=== PATIENT | male | born 1995 | race Two or more races ===

== ENCOUNTER 2020-02-28 21:24 | Emergency (ER) | payer OTHER ==
[2020-02-28 21:31] VITALS: BP 116/71; PULSE 76; TEMP 97.6; BMI 18.1
--- NOTE | 2020-02-28 21:31 | PDOC ---
Rapid Medical Evaluation Time Seen by Provider: 02/28/20 21:28 Medical Evaluation: 02/28/20 21:28 Pt presents for evaluation of chest pain for three days. States it started at the R side and now has moved to the left. Hx of COVID back in July. Worse with exertion Exam: RRR. Lungs CTAB Orders: labs, EKG Pt to proceed to the ER for evaluation Discharge Disposition - Diagnosis Chest pain - Referrals - Patient Instructions - Post Discharge Activity
--- NOTE | 2020-02-29 00:07 | PDOC ---
History of Present Illness - General Chief Complaint: Chest Pain Stated Complaint: CHEST PAIN Time Seen by Provider: 02/28/20 21:28 History Source: Patient Exam Limitations: No Limitations - History of Present Illness Initial Comments: 02/29/20 00:05 HISTORY OF PRESENT ILLNESS: 24-year-old male presents emergency department for evaluation of left-sided chest pain starting at approximately 6:00 today. Patient reports the pain was a sharp sensation which radiated to his left arm giving him weakness in his left arm. Patient states he has had a similar pain to the right side of his chest over the past 5 to 6 days but was concerned now that the pain has radiated to his left arm. Patient denies any coughing, fevers, chills, shortness of breath, nausea, vomiting, drug use. No recent travel or sick contacts. PAST MEDICAL HISTORY: Denies past medical history SURGICAL HISTORY: Denies ALLERGIES: Penicillin REVIEW OF SYSTEMS General/Constitutional: Denies fever or chills. Denies weakness, weight change. HEENT: Denies change in vision. Denies ear pain or discharge. Denies sore throat. Cardiovascular: See HPI Respiratory: Denies cough, wheezing, or hemoptysis. Gastrointestinal: Denies nausea, vomiting, diarrhea or constipation. Denies rectal bleeding. Genitourinary: Denies dysuria, frequency, or change in urination. Musculoskeletal: Denies joint or muscle swelling or pain. Denies neck or back pain. Skin and breasts: Denies rash or easy bruising. Neurologic: Denies headache, vertigo, loss of consciousness, or loss of sensation. Psychiatric: Denies depression or anxiety. Endocrine: Denies increased thirst. Denies abnormal weight change. Hematologic/Lymphatic: Denies anemia, easy bleeding, or history of blood clots. Allergic/Immunologic: Denies hives or skin allergy. Denies latex allergy. PHYSICAL EXAM General Appearance: Well-appearing, appropriately dressed. No apparent distress, no intoxication. Respiratory/Chest: Lungs CTAB. No shortness of breath, chest tenderness, respiratory distress, accessory muscle use. No crackles, rales, rhonchi, stridor , wheezing, dullness Cardiovascular: RRR. S1, S2. No JVD, murmur, bradycardia, tachycardia. Vascular Pulses: Dorsalis-Pedis (R): 2+, Dorsalis-Pedis (L): 2+ Gastrointestinal/Abdominal: Normal bowel sounds. Abdomen soft, non-distended. No tenderness or rebound tenderness. No organomegaly, pulsatile mass, guarding, hernia, hepatomegaly, splenomegaly. Integumentary: Appropriate color, dry, warm. No cyanosis, erythema, jaundice or rash Past History - Medical History Allergies/Adverse Reactions: Allergies Allergy/AdvReac Type Severity Reaction Status Date / Time Penicillins Allergy Verified 02/28/20 21:31 COPD: No - Psycho-Social/Smoking History Smoking History: Never smoked - Substance Abuse Hx (Audit-C & DAST Scrn) How often the patient has a drink containing alcohol: Never Score: In Men: 4 or > Positive; In Women: 3 or > Positive: 0 Screen Result (Pos requires Nsg. Audit-10AR): Negative In the last yr the pt used illegal drug/Rx for NonMed reason: No Score: Yes response is considered Positive: 0 Screen Result (Positive result requires Nsg. DAST-10): Negative *Physical Exam - Vital Signs Last Vital Signs Temp Pulse Resp BP Pulse Ox 97.6 F 76 19 116/71 99 02/28/20 21:28 02/28/20 21:28 02/28/20 21:28 02/28/20 21:28 02/28/20 21:28 ED Treatment Course - LABORATORY CBC & Chemistry Diagram: 02/28/20 23:35 02/28/20 23:35 - ADDITIONAL ORDERS Additional order review: Laboratory Results 02/28/20 02/28/20 23:35 23:35 PT with INR 14.50 H INR 1.23 H Sodium 140 Potassium 3.9 Chloride 104 Carbon Dioxide 31 Anion Gap 5 L BUN 17.4 Creatinine 1.1 Est GFR (CKD-EPI)AfAm 108.32 Est GFR (CKD-EPI)NonAf 93.46 Random Glucose 59 L Calcium 8.9 Total Bilirubin 1.7 H AST 12 L ALT 18 Alkaline Phosphatase 60 Creatine Kinase 88 Troponin I < 0.02 Total Protein 7.5 Albumin 4.2 02/28/20 23:35 RBC 5.19 MCV 80.5 MCHC 35.5 RDW 12.6 MPV 9.0 Neutrophils % 65.6 Lymphocytes % 22.1 Monocytes % 8.3 Eosinophils % 0.4 Basophils % 3.6 H Medical Decision Making - Medical Decision Making 02/29/20 00:07 A/P: 24-year-old male with left-sided chest pain for 6 hours Physical exam is unremarkable Orders per E Reassess anticipate discharge 02/29/20 01:07 Laboratory Tests 02/28/20 02/28/20 02/28/20 23:35 23:35 23:35 WBC 5.2 RBC 5.19 Hgb 14.8 Hct 41.8 MCV 80.5 MCH 28.6 MCHC 35.5 RDW 12.6 Plt Count 162 MPV 9.0 Absolute Neuts (auto) 3.4 Neutrophils % 65.6 Lymphocytes % 22.1 Monocytes % 8.3 Eosinophils % 0.4 Basophils % 3.6 H Nucleated RBC % 0 PT with INR 14.50 H INR 1.23 H Sodium 140 Potassium 3.9 Chloride 104 Carbon Dioxide 31 Anion Gap 5 L BUN 17.4 Creatinine 1.1 Est GFR (CKD-EPI)AfAm 108.32 Est GFR (CKD-EPI)NonAf 93.46 Random Glucose 59 L Calcium 8.9 Total Bilirubin 1.7 H AST 12 L ALT 18 Alkaline Phosphatase 60 Creatine Kinase 88 Troponin I < 0.02 Total Protein 7.5 Albumin 4.2 Chest x-ray as read by me: Angles clear. Cardiac silhouette is within normal limits. No focal infiltrates or consolidations noted. EKG sinus rhythm with rate of 74. T wave inversions in V2. This patient has normal initial troponin and symptoms been present for 7 days feel it is safe to discharge home to follow-up with his primary doctor. I discussed the physical exam findings, ancillary test results and final diagnoses with the patient. I answered all of the patient's questions. The patient was satisfied with the care received and felt comfortable with the dis charge plan and treatment plan. The patient will call their primary care physician within 24 hours to arrange follow-up and will return to the Emergency Department with any new, persistent or worsening symptoms. Portions of this note have been documented using voice recognition software. As a result, errors may occur in the electrician machine shop process. Effort has been made to correct all grammatical and electrician machine shop error, but some may have been missed which may produce sporadic inaccurate electrician machine shop or nonsensical phrases. Discharge - Discharge Information Problems reviewed: Yes Clinical Impression/Diagnosis: Chest pain Qualifiers: Chest pain type: unspecified Qualified Code(s): R07.9 - Chest pain, unspecified Condition: Fair Disposition: HOME - Admission No - Follow up/Referral Referrals: ON STAFF,NOT [Primary Care Provider] - - Patient Discharge Instructions Patient Printed Discharge Instructions: DI for Chest Pain Additional Instructions: It is important that you follow-up with your primary doctor. Return to the emergency department for any new or worsening symptoms. Thank you very much for choosing us to provide your emergent healthcare needs. - Post Discharge Activity Work/Back to School Note: Back to Work
[2020-02-29 00:11] LABS: BASO % 3.6 % (0-2.0); EOS % 0.4 % (0-4.5); HEMATOCRIT 41.8 % (35.4-49); HEMOGLOBIN 14.8 GM/dL (11.7-16.9); INR 1.23 (0.83-1.09); LYMPH % 22.1 % (8-40); MCH 28.6 pg (25.7-33.7); MCHC 35.5 g/dl (32.0-35.9); MEAN CELL VOLUME 80.5 fl (80-96); MONO % 8.3 % (3.8-10.2); NEUT % 65.6 % (42.8-82.8); PLATELET COUNT 162 K/MM3 (134-434); PROTHROMBIN TIME (PATIENT) 14.5 SEC (9.7-13.0); RBC 5.19 M/mm3 (4.00-5.60); RDW 12.6 % (11.9-15.9); WHITE BLOOD COUNT 5.2 K/mm3 (4.0-10.0)
[2020-02-29 00:34] LABS: ALBUMIN 4.2 g/dl (3.4-5.0); ALK PHOS 60 U/L (45-117); ANION GAP 5 MMOL/L (8-16); BILIRUBIN,TOTAL 1.7 mg/dL (0.2-1); BLOOD UREA NITROGEN 17.4 mg/dL (7-18); CALCIUM 8.9 mg/dL (8.5-10.1); CHLORIDE 104 mmol/L (98-107); CO2 31 mmol/L (21-32); CREATININE 1.1 mg/dL (0.55-1.3); GLUCOSE,RANDOM 59 mg/dL (74-106); POTASSIUM 3.9 mmol/L (3.5-5.1); SGOT/AST 12 U/L (15-37); SGPT/ALT 18 U/L (13-61); SODIUM 140 mmol/L (136-145); TOT PROT 7.5 g/dl (6.4-8.2)
--- OUTSIDE RECORDS SUMMARY | 2020-02-29 06:32 | XMS ---
:1995 Author Organization [facility] Support Name Relationship Address Phone UE, UNEMPLOYED Unavailable Unavailable Unavailable UE Unavailable Unavailable Unavailable [employer]TON [employer] [address] [place] [id number] Re-disclosure Warning The records that you are about to access may contain information from federally- assisted alcohol or drug abuse programs. If such information is present, then the following federally mandated warning applies: This information has been disclosed to you from records protected by federal confidentiality rules (42 CFR part 2). The federal rules prohibit you from making any further disclosure of this information unless further disclosure is expressly permitted by the written consent of the person to whom it pertains or as otherwise permitted by 42 CFR part 2. A general authorization for the release of medical or other information is NOT sufficient for this purpose. The Federal rules restrict any use of the information to criminally investigate or prosecute any alcohol or drug abuse patient.The records that you are about to access may contain highly sensitive health information, the redisclosure of which is protected by Article 27-F of the [facility] Public Health law. If you continue you may haveaccess to information: Regarding HIV / AIDS; Provided by facilities licensed or operated by the [facility] Office of Mental Health; or Provided by the [facility] Office for People With Developmental Disabilities. If such information is present, then the following [facility] mandated warning applies: This information has been disclosed to you from confidential records which are protected by state law. State law prohibits you from making any further disclosure of this information without the specific written consent of the person to whom it pertains, or as otherwise permitted by law. Any unauthorized further disclosure in violation of state law may result in a fine or fdc sentence or both. A general authorization for the release of medical or other information is NOT sufficient authorization for further disclosure. Insurance Providers Payer name Policy type Policy ID Covered Covered libertarian's Policy P denis / Coverage libertarian ID relationship to Luz Inf ormation type luz [employer] [id number] SP [id number] ESSENTIAL PLAN 1 2 SELF PAY SP INSURANCE MEDICAID [id number] Results ID Date Data Source [id number] 08/14/2019 12:00:00 AM EDT [facility] Name Value Range Interpretation Code Description Data Odilia rce(s) Supporting Document(s ) 2019-nCoV [facility] RNA XXX LENORA+probe- Imp This lab was ordered by [facility] a nd reported by [employer] Procedure
--- NOTE | 2020-02-29 13:22 | EKG ---
Test Reason : Blood Pressure : / mmHG Vent. Rate : 074 BPM Atrial Rate : 074 BPM P-R Int : 158 ms QRS Dur : 088 ms QT Int : 366 ms P-R-T Axes : 083 084 065 degrees QTc Int : 406 ms NORMAL SINUS RHYTHM WITH SINUS ARRHYTHMIA POSSIBLE LEFT ATRIAL ENLARGEMENT BORDERLINE ECG NO PREVIOUS ECGS AVAILABLE Confirmed by EDDIE CHOI MD ([id number]) on 02/29/2020 1:22:10 PM Referred By: Confirmed By:EDDIE CHOI MD
== END 2020-02-29 00:30 | disposition home or self-care (01) ==
LOC: JER 21:24
DX: R07.9 Chest pain, unspecified (principal)
CPT/HCPCS: 36415; 71046-TC-FY; 80053; 82550; 84484; 85025; 85610; 93005; 93010; 99285-25

== ENCOUNTER 2020-11-05 11:19 | Emergency (ER) | payer OTHER ==
[2020-11-05 11:32] VITALS: BMI 18.1
[2020-11-05] MEDS ORDERED: SODIUM CHLORIDE 1,000 ML IV STA (11:36)
[2020-11-05 12:33] LABS: BASO % 0.3 % (0-2.0); EOS % 0.8 % (0-4.5); HEMATOCRIT 44.1 % (35.4-49); HEMOGLOBIN 15.4 GM/dL (11.7-16.9); MCH 28.1 pg (25.7-33.7); MEAN CELL VOLUME 80.4 fl (80-96); MONO % 7.4 % (3.8-10.2); NEUT % 77.5 % (42.8-82.8); PLATELET COUNT 140 10^3/uL (134-434); RBC 5.49 M/mm3 (4.00-5.60); RDW 12.8 % (11.9-15.9); WHITE BLOOD COUNT 9.3 K/mm3 (4.0-10.0)
[2020-11-05] MEDS ORDERED: ACETAMINOPHEN 1000 MG/100 ML VIAL (NON FORMULARY) IVPB ONE (12:34)
[2020-11-05] MEDS ORDERED: ACETAMINOPHEN INJECTION 100 ML IVPB ONE (12:42)
[2020-11-05 13:14] LABS: CHLORIDE 108 mmol/L (98-107); SODIUM 139 mmol/L (136-145)
[2020-11-05 13:18] LABS: BLOOD UREA NITROGEN 11.8 mg/dL (7-18); CALCIUM 9.7 mg/dL (8.5-10.1); GLUCOSE,RANDOM 97 mg/dL (74-106)
[2020-11-05 13:29] LABS: ALBUMIN 4.6 g/dl (3.4-5.0); ALK PHOS 59 U/L (45-117); ANION GAP 12 MMOL/L (8-16); CO2 19 mmol/L (21-32); CREATININE 1.1 mg/dL (0.55-1.3); SGOT/AST 14 U/L (15-37); SGPT/ALT 17 U/L (13-61); TOT PROT 7.7 g/dl (6.4-8.2)
[2020-11-05 18:46] VITALS: BP 121/67; PULSE 82; TEMP 98.2
== END 2020-11-05 18:00 | disposition home or self-care (01) ==
LOC: JER 11:19
PROC: 3E0333Z Introduction of Anti-inflammatory into Peripheral Vein, Percutaneous Approach (ICD-10-PCS; principal; 2020-11-05)
PROC: 3E0337Z Introduction of Electrolytic and Water Balance Substance into Peripheral Vein, Percutaneous Approach (ICD-10-PCS; 2020-11-05)
DX: R06.02 Shortness of breath (principal); R50.9 Fever, unspecified; R05 Cough; R00.0 Tachycardia, unspecified
CPT/HCPCS: 36415; 71045-TC-FY; 80053; 82550; 84484; 85025; 85379; 87804; 93005; 93010; 99285-25; C9803; J0131; U0003; U0005